=== PATIENT | female | born 1970 | race Caucasian/White ===

== ENCOUNTER → 2023-05-31 13:21 | Outpatient (REF) | payer BC, SELFPAY | LOC: HWRAD 13:21 | PROVIDERS: ATTENDING PHYSICIAN Internal Medicine | DX: M81.0 Age-related osteoporosis without current pathological fracture (principal) | CPT/HCPCS: 77080 ==

== ENCOUNTER → 2023-11-25 15:58 | Outpatient (REF) | payer BC, SELFPAY | LOC: HWWDC 15:58 | PROVIDERS: ATTENDING PHYSICIAN Nurse Practitioner Family; FAMILY PHYSICIAN Internal Medicine | DX: Z12.31 Encounter for screening mammogram for malignant neoplasm of breast (principal) | CPT/HCPCS: 77063; 77067 ==

== ENCOUNTER → 2024-12-01 13:34 | Outpatient (REF) | payer BC, SELFPAY | LOC: WDC 13:34 | PROVIDERS: ATTENDING PHYSICIAN Obstetrics & Gynecology; FAMILY PHYSICIAN Internal Medicine | DX: Z12.31 Encounter for screening mammogram for malignant neoplasm of breast (principal) | CPT/HCPCS: 77063; 77067 ==

== ENCOUNTER 2024-12-27 13:03 | Emergency (ER) | payer BC, SELFPAY ==
[2024-12-27 13:04] VITALS: BP 153/86
[2024-12-27 13:40] VITALS: BP 141/79; BMI 20.5
--- NOTE | 2024-12-27 14:35 | EDRN ---
Wandy ZUÑIGA in room w/ pt at this time.
[2024-12-27 15:52] VITALS: BP 135/88
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
== END 2024-12-27 16:23 | disposition home or self-care (01) ==
LOC: EMR 13:03
PROVIDERS: EMERGENCY PHYSICIAN Emergency Medicine; FAMILY PHYSICIAN Internal Medicine
DX: H53.8 Other visual disturbances (principal)
CPT/HCPCS: 99283